=== PATIENT | female | born 1990 | race Caucasian/White ===

== ENCOUNTER → 2021-10-07 01:07 | Observation (INO) ==
[2021-10-06 23:35] LABS: Amorphous Sediment,Urine Few per hpf (None-Few); Bacteria,Urine Few per hpf (None-Few); Bilirubin,Urine Negative (Negative); Blood,Urine Negative (Negative); Clarity,Urine Clear (Clear); Color,Urine Yellow (Yellow); Glucose,Urine (UA) Normal (Normal); Ketones,Urine Negative (Negative); Leukocyte Esterase,Urine Trace (Negative); Mucus,Urine Few per lpf (None-Few); Nitrite,Urine Negative (Negative); Protein,Urine Trace mg/dL (Neg-Trace); RBC,Urine 0-3 per hpf (0-3); Specific Gravity,Urine 1.019 (1.010-1.025); Squamous Epithelial Cell,Urine Few per hpf (None-Few); Urobilinogen,Urine Normal (Normal); WBC,Urine 0-3 per hpf (0-3)
== END | disposition home or self-care (01) ==
LOC: 1NENULAB
PROVIDERS: ADMIT Registered Nurse; ATTEND Registered Nurse

== ENCOUNTER 2021-10-26 06:04 | Inpatient (IN) ==
[2021-10-26] MEDS ORDERED: Metoclopramide 10 MG/2 ML VIAL IVP PRN (06:14)
[2021-10-26] MEDS ORDERED: *HR* Nalbuphine 10 MG/ML AMPUL IV PRN (06:14)
[2021-10-26] MEDS ORDERED: Famotidine 20 MG/2 ML VIAL IVP PRN (06:14)
[2021-10-26] MEDS ORDERED: Ondansetron 4 MG/2 ML VIAL IVP PRN (06:14)
[2021-10-26] MEDS ORDERED: Naloxone 0.4 MG/ML INJ IVP PRN (06:14)
[2021-10-26] MEDS ORDERED: Oxytocin 20 units/ LR 1000 mL 20 UNIT/1,000 ML BAG IVC SCH ×2 (06:15→19:58)
[2021-10-26 06:40] LABS: Amphetamine Screen,Urine Negative ng/mL (Cutoff=1000); Barbiturate Screen,Urine Negative ng/mL (Cutoff=200)
[2021-10-26 06:41] LABS: Basophils % 0.3 %; Benzodiazepines Screen,Urine Negative ng/mL (Cutoff=300); Cannabinoid Screen,Urine Negative ng/mL (Cutoff = 50); Cocaine Screen,Urine Negative ng/mL (Cutoff= 300); Eosinophils # 0.1 K/mcL (0.0-0.6); Eosinophils % 0.7 %; Hematocrit 34.5 % (35.3-44.9); Hemoglobin 11.7 g/dL (11.5-15.4); Immature Granulocytes % 0.3 % (0-4); Lymphocytes # 2.1 K/mcL (0.6-4.6); Lymphocytes % 21.4 %; Mean Corpuscular HGB Conc 33.9 g/dL (31.6-35.5); Mean Corpuscular Hemoglobin 28.1 pg (28.0-33.3); Mean Corpuscular Volume 82.9 fL (83.0-100.0); Mean Platelet Volume 9.8 fL (9.4-12.4); Monocytes # 0.6 K/mcL (0.0-1.3); Neutrophils # 7.1 K/mcL (1.6-8.9); Opiate Screen,Urine Negative ng/mL (Cutoff=300); Phencyclidine Screen,Urine Negative ng/mL (Cutoff=25); Platelet Count 363 K/mcL (140-400); Red Blood Count 4.16 M/mcL (3.82-4.97); Red Cell Distribution Width 13.3 % (11.5-14.5); Segmented Neutrophils % 71.3 %; White Blood Count 9.9 K/mcL (4.3-11.1)
[2021-10-26] MEDS: Ringers Solution, Lactated 1,000 ML IVC SCH ×2 (06:54→10:35)
[2021-10-26 07:03] LABS: Alanine Aminotransferase 15 Units/L (7-52); Aspartate Amino Transferase 18 Units/L (13-39); BUN/Creatinine Ratio 13 (6-26); Blood Urea Nitrogen 10 mg/dL (6-20); Lactate Dehydrogenase 151 Units/L (140-271); Uric Acid 5.1 mg/dL (2.3-7.6); eGFR For African Americans > 60 (> 60); eGFR For Non-African Americans > 60 (> 60)
[2021-10-26] MEDS ORDERED: *HR* FentaNYL (PF) 100 MCG/2 ML VIAL EP ONE (10:07)
[2021-10-26] MEDS ORDERED: Ropivacaine/PF 0.2% 20 ML VIAL EP ONE (10:07)
[2021-10-26] MEDS ORDERED: EPHEDrine 50 MG/ML VIAL IVP PRN (10:07)
[2021-10-26] MEDS ORDERED: Epidural Premix (fent/bupiv) 110 ML EP SCH (10:15)
[2021-10-26] MEDS ORDERED: Bupivacaine-MPF 0.25% 10 ML VIAL ONE (10:20)
[2021-10-26 10:39] LABS: Creatinine,Urine 52 mg/dL; Protein/Creatinine Ratio,Urine 0.15 mg/mg (0.00-0.20)
[2021-10-26] MEDS ORDERED: Lanolin 7 G OINT...G. TP PRN (19:58)
[2021-10-26] MEDS ORDERED: Ondansetron ODT 4 MG TAB.RAPDIS SL PRN (19:58)
[2021-10-26] MEDS ORDERED: Rho Immune Globulin 1,500 UNIT SYRINGE IM PRN (19:58)
[2021-10-26] MEDS ORDERED: Benzocaine/Menthol 56 GM AEROSOL SPRAY TP PRN (19:58)
[2021-10-26] MEDS ORDERED: Measles/Mumps/Rubella Vacc 0.5 ML VIAL SQ PRN (19:58)
[2021-10-26] MEDS: Acetaminophen 325 MG TABLET PO SCH (20:44)
[2021-10-26] MEDS: Ibuprofen 600 MG TABLET PO SCH (20:45)
[2021-10-27] MEDS: Ibuprofen 600 MG TABLET PO SCH ×3 (03:12→16:21)
[2021-10-27 03:51] VITALS: O2SAT 99
[2021-10-27 06:34] VITALS: BP 124/79; PULSE 79; TEMP 97.7
[2021-10-27] MEDS: Acetaminophen 325 MG TABLET PO SCH (08:00)
[2021-10-27] MEDS ORDERED: NON-FORMULARY MEDICATION 1 EACH EACH (Prenat 115/Iron Fum/Folic/Dss [Prenatal 19 Tablet] 1 PO SCH (09:00)
[2021-10-27] MEDS ORDERED: Prenatal Vit/FA 1 EACH TABLET PO SCH (09:00)
== END 2021-10-27 17:40 | disposition home or self-care (01) | DRG 807 ==
LOC: 1NENULAB 06:04 → 1NENUOBS 19:41
PROVIDERS: ADMIT Registered Nurse; ATTEND Registered Nurse